=== PATIENT | female | born 1995 | race African-American/Black ===

== ENCOUNTER 2017-04-25 22:21 | Emergency (ER) | payer MEDICAID ==
[~2017-04-25] VITALS: Ht 149.9 cm; Wt 55.0 kg
[2017-04-26] MEDS ORDERED: SODIUM CHLORIDE 0.9% 1,000 ML IV ONE (03:45)
[2017-04-26] MEDS ORDERED: METOCLOPRAMIDE HCL 10MG/2ML VIAL IV ONE (03:45)
[2017-04-26] MEDS ORDERED: KETOROLAC 30MG/ML VIAL IV ONE (03:45)
[2017-04-26] MEDS ORDERED: DIPHENHYDRAMINE 50MG/ML VIAL IV ONE (03:45)
[2017-04-26 05:00] VITALS: BP 118/68
== END 2017-04-26 05:40 | disposition home or self-care (01) ==
LOC: ER 22:21
DX: R51 Headache (principal); R10.9 Unspecified abdominal pain
CPT/HCPCS: 81025; 96361; 96374; 96375; 99284; J1200; J1885; J2765; J7030; Z7610